=== PATIENT | female | born 1970 | race Caucasian/White ===

== ENCOUNTER 2023-12-09 15:55 | Emergency (ER) | payer OTHER ==
[~2023-12-09] VITALS: Ht 160 cm; Wt 121.0 kg
[2023-12-09 16:12] VITALS: TEMP 97.8
[2023-12-09] MEDS: IBUPROFEN 600 MG TABLET PO ONE (17:21)
[2023-12-09] MEDS ORDERED: IBUP-1492 PO (19:54)
[2023-12-09] MEDS ORDERED: ACET-3385 PO (19:55)
[2023-12-09 20:01] VITALS: BP 136/87; PULSE 79; RESP 20
== END 2023-12-09 20:06 | disposition home or self-care (01) ==
LOC: EMS 16:13
DX: S42.401A Unspecified fracture of lower end of right humerus, initial encounter for closed fracture (principal); I10 Essential (primary) hypertension; Z98.890 Other specified postprocedural states; W19.XXXA Unspecified fall, initial encounter; Y93.89 Activity, other specified; Y92.89 Other specified places as the place of occurrence of the external cause; Y99.8 Other external cause status
CPT/HCPCS: 29105; 99284; 73080-TC; 73110-TC; Z7502; Z7610